=== PATIENT | male | born 1980 ===

== ENCOUNTER 2020-11-25 08:57 | Emergency (ER) | payer OTHER ==
[~2020-11-25] VITALS: Ht 175.3 cm; Wt 83.9 kg
[~2020-11-25 08:57] MED LIST: AMOX1TAB12 PO; SEPTRA DS TABLE1 TAB PO
[2020-11-25] MEDS ORDERED: KETO10TA2 PO (16:28)
[2020-11-25] MEDS ORDERED: PEPCID AC20 MG PO (16:28)
== END 2020-11-25 17:00 | disposition home or self-care (01) ==
LOC: ER 08:57
DX: K63.89 Other specified diseases of intestine (principal); N39.0 Urinary tract infection, site not specified; R10.32 Left lower quadrant pain